=== PATIENT | male | born 1995 | race Hispanic/Latino ===

== ENCOUNTER 2021-03-05 08:02 | Outpatient (CLI) | payer OTHER | END 2021-03-05 08:03 | disposition home or self-care (01) | LOC: CSHWCC 08:02 | PROVIDERS: ATTEND Nurse Practitioner Family | DX: T81.89XD Other complications of procedures, not elsewhere classified, subsequent encounter (principal); G89.11 Acute pain due to trauma; L08.89 Other specified local infections of the skin and subcutaneous tissue; B96.89 Other specified bacterial agents as the cause of diseases classified elsewhere; M10.9 Gout, unspecified | CPT/HCPCS: 99212; G0463 ==

== ENCOUNTER 2021-03-19 08:25 | Outpatient (CLI) | payer OTHER | END 2021-03-19 08:26 | disposition home or self-care (01) | LOC: CSHWCC 08:25 | PROVIDERS: ATTEND Nurse Practitioner Family | DX: T81.89XD Other complications of procedures, not elsewhere classified, subsequent encounter (principal); G89.11 Acute pain due to trauma; L08.89 Other specified local infections of the skin and subcutaneous tissue; B96.89 Other specified bacterial agents as the cause of diseases classified elsewhere; M10.9 Gout, unspecified | CPT/HCPCS: 99212; G0463 ==